=== PATIENT | female | born 1945 | race Hispanic/Latino ===

== ENCOUNTER 2022-06-26 13:29 | Emergency (ER) | payer MEDICARE ==
[~2022-06-26 13:29] MED LIST: ALEN70TA80 PO; ASPI-1197 PO; ATOR10TA PO; CARB-38 PO; METF-446 PO; RANI150T7 PO; TRIH2TAB3 PO; VOLTAREN 1%; [UNRECOGNIZED DRUG - OTHER] PO
[2022-06-26] MEDS ORDERED: ACETAMINOPHEN 500 MG TABLET PO ONE (15:00)
[2022-06-26 17:30] VITALS: BP 165/70
== END 2022-06-26 17:28 | disposition home or self-care (01) ==
LOC: EDH 13:29
DX: M79.601 Pain in right arm (principal); M54.2 Cervicalgia; M19.90 Unspecified osteoarthritis, unspecified site; F02.80 Dementia in other diseases classified elsewhere, unspecified severity, without behavioral disturbance, psychotic disturbance, mood disturbance, and anxiety; E11.9 Type 2 diabetes mellitus without complications; G20 Parkinson's disease; M81.0 Age-related osteoporosis without current pathological fracture; Z79.84 Long term (current) use of oral hypoglycemic drugs; Z79.82 Long term (current) use of aspirin; Z79.899 Other long term (current) drug therapy; Z88.8 Allergy status to other drugs, medicaments and biological substances; W19.XXXA Unspecified fall, initial encounter; Y93.89 Activity, other specified; Y92.89 Other specified places as the place of occurrence of the external cause; Y99.8 Other external cause status
CPT/HCPCS: 70450; 71045; 72125; 72131; 73060